=== PATIENT | male | born 1980 | race African-American/Black ===

== ENCOUNTER 2016-06-06 09:35 | Day surgery (SDC) | payer OTHER ==
[2016-06-06 10:11] VITALS: TEMP 97.5; BMI 41.0
[2016-06-06 12:23] VITALS: BP 110/61; PULSE 61
--- NOTE | 2016-06-07 13:33 | PATH ---
Surgical Pathology Report Patient Name: DAWN ROSALES [facility]. Rec. #: [id number] /Age/Gender: 1980 (Age: 36) / M Account: [id number] Location: U-ENDOSCOPY Taken: 06/06/2016 Received: 06/06/2016 Reported: 06/07/2016 Physicians: Chay Cruz D.O. Specimen(s) Received A: BX ILEOCOLONIC ANASTOMOSIS B: BX RECTAL POLYP Clinical History Surveillance, history of colon cancer/surgical resection 2016 Rectal polyp, history of colon cancer Final Diagnosis A. ILEOCOLIC ANASTOMOSIS, BIOPSY: COLONIC MUCOSA WITH MILD ACTIVE INFLAMMATION AND FOCAL ARCHITECTURAL DISARRAY CONSISTENT WITH ANASTOMOSIS SITE. NO EVIDENCE OF GRANULOMATA, DYSPLASIA/ADENOMA OR CARCINOMA. B. RECTUM, POLYP, BIOPSY: HYPERPLASTIC POLYP. Electronically Signed Asa Argueta M.D. Gross Description A. Received in formalin, labeled "ileocolonic anastomosis" are 3 ivan, irregular portions of soft tissue ranging from 0.1-0.4 cm in greatest dimension. The specimens are submitted in toto in one cassette. B. Received in formalin, labeled "rectal polyp" is a ivan, irregular portion of soft tissue measuring 0.2 cm in greatest dimension. The specimen is submitted in toto in one cassette. 06/06/201606/06/2016
== END 2016-06-06 12:23 | disposition home or self-care (01) ==
LOC: JASU-ENDO 09:35
PROVIDERS: ATTEND Internal Medicine Gastroenterology
PROC: 0DBP8ZX Excision of Rectum, Via Natural or Artificial Opening Endoscopic, Diagnostic (ICD-10-PCS; 2016-06-06)
PROC: 0DBL8ZX Excision of Transverse Colon, Via Natural or Artificial Opening Endoscopic, Diagnostic (ICD-10-PCS; principal; 2016-06-06 10:00)
DX: Z85.038 Personal history of other malignant neoplasm of large intestine (principal); K62.1 Rectal polyp; Z98.0 Intestinal bypass and anastomosis status; K64.8 Other hemorrhoids
CPT/HCPCS: 88305-TC